=== PATIENT | male | born 1985 | race Caucasian/White ===

== ENCOUNTER 2017-04-08 12:08 | Emergency (ER) | payer MEDICAID, OTHER ==
[~2017-04-08] VITALS: Ht 177.8 cm; Wt 95.0 kg
[2017-04-08 12:13] VITALS: BP 142/84
--- NOTE | 2017-04-08 12:21 | NUR ---
PATIENT PRESENTS TO ED WITH 32M BIB FAMILY C/O COUGH AND CONGESTION WITH INTERMITTENT CHILLS X 1 WEEK. HX: PT DENIES RX: PT DENIES; DENIES N/V/D; SKIN IS PINK/WARM/DRY; AAOX4 WITH EVEN AND STEADY GAIT; LUNGS CLEAR BL; HR EVEN AND REGULAR; PT DENIES ANY FEVER, CP, OR SOB AT THIS TIME; PATIENT STATES PAIN OF 0/10 AT THIS TIME; VSS; PATIENT POSITIONED FOR COMFORT; HOB ELEVATED; BEDRAILS UP X2; BED DOWN. ER MD MADE AWARE OF PT STATUS.
[2017-04-08 13:05] VITALS: BP 114/55
--- NOTE | 2017-04-08 13:05 | NUR ---
Patient discharged with v/s stable. Written and verbal after care instructions given and explained. Patient alert, oriented and verbalized understanding of instructions. Ambulatory with steady gait. All questions addressed prior to discharge. ID band removed. Patient advised to follow up with PMD. Rx of ALBUTEROL, AZITHROMYCIN, MOTRIN, PREDNISONE, CODEINE PHOSPHATE/GUAIFENESIN given. Patient educated on indication of medication including possible reaction and side effects. Opportunity to ask questions provided and answered.
== END 2017-04-08 13:05 | disposition home or self-care (01) ==
LOC: MED 12:08
DX: J20.9 Acute bronchitis, unspecified (principal)
CPT/HCPCS: 99283